=== PATIENT | female | born 1960 | race Caucasian/White ===

== ENCOUNTER 2021-05-24 17:31 | Emergency (ER) | payer OTHER, BC ==
[~2021-05-24] VITALS: Ht 170.2 cm; Wt 68.8 kg
[2021-05-24] MEDS ORDERED: LOSA50TA64 PO (18:06)
[2021-05-24] MEDS ORDERED: ACET-1025 PO (18:06)
[2021-05-24] MEDS ORDERED: CYCL-1 PO (18:06)
[2021-05-24] MEDS ORDERED: ketorolac tromethamine 15mg/ml inj. IM ONE (18:10)
[2021-05-24 18:25] VITALS: BP 158/69
== END 2021-05-24 18:28 | disposition home or self-care (01) ==
LOC: ER 17:32
DX: M62.830 Muscle spasm of back (principal); M54.50 Low back pain, unspecified; I10 Essential (primary) hypertension; Z79.899 Other long term (current) drug therapy; X50.1XXA Overexertion from prolonged static or awkward postures, initial encounter; Y93.89 Activity, other specified; Y92.018 Other place in single-family (private) house as the place of occurrence of the external cause
CPT/HCPCS: 96372; 99283; J1885

== ENCOUNTER 2024-08-21 10:33 | Outpatient (CLI) | payer OTHER ==
[~2024-08-21 10:33] MED LIST: CYCL-1 PO; LOSA50TA64 PO
== END 2024-08-21 23:59 | disposition home or self-care (01) ==
LOC: VAS 10:33
PROVIDERS: ATTEND Chiropractor
DX: I73.9 Peripheral vascular disease, unspecified (principal); I10 Essential (primary) hypertension
CPT/HCPCS: 93922

== ENCOUNTER 2025-04-29 11:50 | Outpatient (CLI) | payer OTHER, MEDICARE ==
--- NOTE | 2025-04-29 14:15 | VASCULAR REPORT ---
Carotid Duplex Date: 04/29/2025 12:04 PM Comparison: None Technique: Duplex Doppler evaluation of the extracranial carotid and vertebral arteries including color Doppler and spectral/pulsed waveform analysis was performed. Indications Follow up s/p left Internal Carotid Artery angioplasty/stenting 12/14/2022. Surgery/Intervention Carotid Stent: left Date: 12/14/2022 Doppler Spectral Velocity Analysis Right Left pCCA 87/15 cm/s pCCA 57/20 cm/s dCCA 66/18 cm/s dCCA 50/16 cm/s ECA 71/ cm/s ECA 602/ cm/s pICA 69/19 cm/s 72/30 cm/s Rhonda 58/19 cm/s pICA Rhonda 80/30 cm/s dICA 39/12 cm/s dICA 93/34 cm/s Vert. 64/15 cm/s Vert. 51/19 cm/s Subcl 153/cm/s Subcl. 73/ cm/s ICA/CCA 1.05 ICA/CCA 1.86 Real-Time B-Mode Imaging Area Findings Right Left CCA Plaque Composition Intimal thickening BIF Plaque Composition Heterogeneous Heterogeneous Plaque Description Irregular Irregular ICA Plaque Composition Heterogeneous Heterogeneous Plaque Description Irregular Irregular Plaque Area Focal Focal ECA Plaque Composition Heterogeneous Heterogeneous Plaque Description Smooth Irregular Vertebral Antegrade Antegrade Subclavian Multiphasic Multiphasic CONCLUSION <50% stenosis detected within the internal carotid arteries bilaterally. The left carotid stent appears patent with what appears to be a focal area of plaque at the bifurcation. >50% stenosis detected within the left external carotid artery at 602 cm/sec. <50% stenosis detected within the right external carotid artery and bilateral common carotid arteries. Antegrade flow noted within the vertebral arteries bilaterally. Multiphasic waveforms noted within the subclavian arteries bilaterally.
== END 2025-04-29 23:59 | disposition home or self-care (01) ==
LOC: VAS 11:50
PROVIDERS: ATTEND Radiology Neuroradiology
DX: I65.23 Occlusion and stenosis of bilateral carotid arteries (principal); F50.89 Other specified eating disorder
CPT/HCPCS: 93880